=== PATIENT | male | born 1985 | race Two or more races ===

== ENCOUNTER → 2024-09-01 | Outpatient (CLI) | payer OTHER, SELFPAY ==
[2024-09-01 10:45] LABS: Basophils % (Auto) 0 % (0-2.5); Eosinophils # (Auto) 0.1 Thou/mm3 (0.0-0.5); Eosinophils % (Auto) 1 % (0-10); Hematocrit 46.9 % (41.0-53.0); Hemoglobin 16.9 g/dL (13.5-16.0); Immature Granulocytes % (Auto) 0 % (0-0); Immature Granulocytes Auto 0.01 Thou/mm3 (0.00-0.00); Lymphocytes # (Auto) 2.2 Thou/mm3 (1.0-4.8); Lymphocytes % (Auto) 41 % (10-50); Mean Corpuscular Volume 86 fL (80-100); Monocytes # (Auto) 0.4 Thou/mm3 (0.0-0.8); Monocytes % (Auto) 7 % (0-12); Neutrophils # (Auto) 2.6 Thou/mm3 (1.8-7.7); Neutrophils % (Auto) 50 % (37-80); Nucleated Red Blood Cell % 0 /100 WBC (0); Platelet Count 302 Thou/mm3 (140-440); RDW Standard Deviation 39.6 fL (35.1-43.9); Red Blood Count 5.45 Miln/mm3 (4.50-5.90); White Blood Count 5.2 Thou/mm3 (3.8-10.6)
[2024-09-01 11:09] LABS: Prostate Specific Antigen 0.76 ng/mL (0-4.00)
[2024-09-01 11:16] LABS: Follicle Stimulating Hormone 3.12 mIU/mL (See Note); Vitamin D 25 Hydroxy Total 43.4 ng/mL (7.3-40.2)
[2024-09-01 11:48] LABS: Alanine Aminotransferase 37 U/L (10-49); Albumin, Serum 5.2 gm/dL (3.5-5.0); Alkaline Phosphatase 78 U/L (46-116); Anion Gap 7 (7-16); Aspartate Amino Transferase 42 U/L (0-34); BUN/Creatinine Ratio 18 Ratio (12-20); Bilirubin,Total 3.1 mg/dL (0.3-1.2); Blood Urea Nitrogen 16 mg/dL (9-23); Calcium 10.1 mg/dL (8.3-10.6); Calcium (Corrected) 10.1 mg/dL (8.5-10.1); Carbon Dioxide 27.1 mMol/L (20.0-31.0); Cardiac Risk Estimate 3.7 RATIO (4.0-6.7); Chloride 104 mMol/L (98-107); Cholesterol 165 mg/dL (132-200); Creatinine (Component) 0.9 mg/dL (0.6-1.3); Globulin 2.6 gm/dL (2.3-3.5); Glucose 99 mg/dL (74-106); HDL Cholesterol 45 mg/dL (40-60); LDL Cholesterol,Calculated 100 mg/dL (0-130); Osmolality,Calculated 276 (275-295); Potassium 4.2 mMol/L (3.4-5.1); Sodium 138 mMol/L (136-145); Total Protein 7.8 gm/dL (5.7-8.2); Triglycerides 101 mg/dL (30-150); eGFR > 60 See Note
[2024-09-06 06:37] LABS: Luteinizing Hormone* 4.2 mIU/mL (1.5-9.3); Testosterone, Free,Dialysis 110.6 pg/mL (35.0-155.0); Testosterone, Total, Dialysis 658 ng/dL (250-1100)
== END | disposition home or self-care (01) ==
LOC: COPL 09:34
PROVIDERS: PCP Family Medicine; Referring Provider Nurse Practitioner Family; Visit Provider Nurse Practitioner Family
DX: E29.1 Testicular hypofunction (principal); Z12.5 Encounter for screening for malignant neoplasm of prostate; E55.9 Vitamin D deficiency, unspecified; K76.0 Fatty (change of) liver, not elsewhere classified
CPT/HCPCS: 36415; 80053; 80061; 82306; 83001; 83002; 84153; 84402; 84403; 85025

== ENCOUNTER 2024-11-27 08:04 | Emergency (ER) | payer OTHER, SELFPAY ==
[2024-11-27 08:06] VITALS: PULSE 90; RESP 18
[2024-11-27 08:07] VITALS: BP 169/122; PULSE 78; RESP 17; TEMP 36.6; O2SAT 99; BMI 29.6
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
[2024-11-27 08:25] VITALS: BP 152/95; PULSE 78; RESP 16; TEMP 36.8; O2SAT 100
[2024-11-27] MEDS: HYDROcodone/APAP 5/325 TABLET 1 TAB PO (08:32)
[2024-11-27] MEDS: ONDANSETRON ODT 4 MG TABRAP PO (08:33)
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
[2024-11-27] MEDS: KETOROLAC INJ 60 MG/2 ML VIAL 30 MG IM (11:07)
== END 2024-11-27 11:22 | disposition home or self-care (01) ==
PROVIDERS: Emergency Provider Family Medicine; PCP Family Medicine
DX: S13.4XXA Sprain of ligaments of cervical spine, initial encounter (principal); V89.2XXA Person injured in unspecified motor-vehicle accident, traffic, initial encounter
CPT/HCPCS: 70450; 71046; 72125; 73590; 96372; 99284; J1885; Q0162; A9270